=== PATIENT | male | born 1970 | race Caucasian/White ===

== ENCOUNTER 2016-12-05 05:22 | Outpatient (CLI) | payer MEDICARE ==
[2016-12-05 06:09] LABS: BASOPHILS 0.8 % (0-2); EOSINOPHILS 4.5 % (0-7); HEMATOCRIT 45.5 % (42.0-54.0); HEMOGLOBIN 15.8 g/dL (13.5-17.5); IMMATURE GRANULOCYTES 0.2 % (0-5); LYMPHOCYTES 28.4 % (15-50); MCH 31.5 pg (26.0-34.0); MCHC 34.7 g/dL (31.0-37.0); MCV 90.6 fL (80.0-100.0); MEAN PLATELET VOLUME 11.1 fL (7.4-10.4); MONOCYTES 15.4 % (2-11); NEUTROPHILS 50.7 % (40-80); PLATELET COUNT 115 10x3/uL (130-400); RBC 5.02 10x6/uL (4.20-6.10); RDW 12.9 % (11.5-14.5); WBC 4.9 10x3/uL (4.8-10.8)
[2016-12-05 06:16] LABS: APTT 32.6 SECONDS (22.8-39.4); INR 1.01 (0.85-1.17); PROTIME 13.2 SECONDS (11.6-15.0)
[2016-12-05 06:45] LABS: ANION GAP 10.5 mmol/L (8-16); CALCIUM 8.9 mg/dL (8.5-10.1); CREATININE - SERUM 1.2 mg/dL (0.6-1.3); POTASSIUM - SERUM 3.5 mmol/L (3.5-5.1)
[2016-12-05] MEDS ORDERED: HYDROCODONE-APA1 TAB PO (06:55)
[2016-12-05] MEDS ORDERED: VOLTAREN100 GM TOPICAL (06:55)
[2016-12-05 07:29] VITALS: BP 146/92; BMI 32.2
--- NOTE | 2016-12-05 10:28 | NUR ---
0920--ALL VITAL SIGNS CHARTED ON POST PROCEDURE VITAL SIGN SHEET CHECKLIST IN CHART. ELPIDIO ARVIZU
--- NOTE | 2016-12-05 10:37 | NUR ---
1033--PT COMPLAINS OF PAIN RATES PAIN 5-6/10, NORCO 10/325MG GIVEN PO FOR PAIN. WILL CONTINUE TO MONITOR. ELPIDIO ARVIZU
--- NOTE | 2016-12-05 11:30 | NUR ---
1110--PT RATES PAIN 2/10 WHEN STILL AND 4/10 WHEN MOVING. WILL CONTINUE TO MONITOR. ELPIDIO ARVIZU
[2016-12-05] MEDS ORDERED: GLIPIZIDE10 MG PO (11:39)
[2016-12-05] MEDS ORDERED: SYNTHROID25 MCG PO (11:40)
[2016-12-05] MEDS ORDERED: FLUTICASONE PRO16 GM NASAL (11:41)
[2016-12-05] MEDS ORDERED: BAYER CHEWABLE81 MG PO (11:41)
[2016-12-05] MEDS ORDERED: GLUCOPHAGE1000 MG PO (11:42)
[2016-12-05] MEDS ORDERED: MILK THISTLE140 MG PO (11:42)
[2016-12-05] MEDS ORDERED: KRILL OIL 1,001 EAC1 PO (11:42)
[2016-12-05] MEDS ORDERED: ZANAFLEX4 MG PO (11:43)
[2016-12-05] MEDS ORDERED: DESERYL100 MG PO (11:44)
--- NOTE | 2016-12-05 13:40 | NUR ---
1300--IV DC'D, PT UP TO DRESS AT THIS TIME. ELPIDIO ARVIZU 1315--DISCHARGE INSTRUCTIONS GIVEN, PT VERBALIZES UNDERSTANDING. PT OFF UNIT VIA WC. ELPIDIO ARVIZU
== END 2016-12-05 13:15 | disposition home or self-care (01) ==
LOC: D.OPS 05:22 → D.CT 08:00 → D.OPS 13:15
PROVIDERS: Radiology Diagnostic Radiology
DX: K74.60 Unspecified cirrhosis of liver (principal); Z01.812 Encounter for preprocedural laboratory examination

== ENCOUNTER → 2017-03-23 08:14 | Outpatient (CLI) | payer MEDICARE ==
[~2017-03-23 08:14] MED LIST: BAYER CHEWABLE81 MG PO; DESERYL100 MG PO; FLUTICASONE PRO16 GM NASAL; GLIPIZIDE10 MG PO; GLUCOPHAGE1000 MG PO; HYDROCODONE-APA1 TAB PO; KRILL OIL 1,001 EAC1 PO; MILK THISTLE140 MG PO; SYNTHROID25 MCG PO; VOLTAREN100 GM TOPICAL; ZANAFLEX4 MG PO
[2017-03-23 09:11] LABS: ALBUMIN 3.7 g/dL (3.4-5.0); BILIRUBIN - DIRECT 0.28 mg/dL (0.00-0.30); BILIRUBIN - INDIRECT 0.42 mg/dL (0.00-1.00); BILIRUBIN - TOTAL 0.7 mg/dL (0.2-1.3); PROTEIN - SERUM 7.6 g/dL (6.4-8.2)
== END | disposition home or self-care (01) ==
LOC: D.US 08:14
PROVIDERS: Internal Medicine Gastroenterology
DX: R74.8 Abnormal levels of other serum enzymes (principal)

== ENCOUNTER → 2017-09-21 08:40 | Outpatient (CLI) | payer MEDICARE ==
[2017-09-21 09:37] LABS: ALBUMIN 3.8 g/dL (3.4-5.0); BILIRUBIN - DIRECT 0.44 mg/dL (0.00-0.30); BILIRUBIN - INDIRECT 0.68 mg/dL (0.00-1.00); BILIRUBIN - TOTAL 1.12 mg/dL (0.2-1.3); PROTEIN - SERUM 7.9 g/dL (6.4-8.2)
== END | disposition home or self-care (01) ==
LOC: D.US 08:40
PROVIDERS: Internal Medicine Gastroenterology
DX: K76.0 Fatty (change of) liver, not elsewhere classified (principal); R79.89 Other specified abnormal findings of blood chemistry